=== PATIENT | female | born 1935 | race Caucasian/White ===

== ENCOUNTER 2018-07-01 04:50 | Inpatient (IN) ==
[2018-07-01 05:32] LABS: BASO# 0.01 X1000 (0.0-0.2); BASO% 0.1 % (0.0-0.8); EOS# 0.19 X1000 (0.0-0.7); EOS% 2.1 % (0.0-10.0); HEMOGLOBIN 11.8 g/dL (12.0-16.0); IMM GRAN# 0.01 X1000 (0.0-0.04); IMM GRAN% 0.1 % (0.0-0.5); LYMPH# 1.95 X1000 (1.2-3.4); MCH 31.2 PG (27-31); MCHC 31.1 g/dL (33-37); MCV 100.5 FL (81-99); MPV 9.6 FL (7.4-10.4); NEUT% 66.7 % (42.2-75.2); PLT 155 X1000 (130-400); RBC 3.78 XMIL (4.2-5.4); RDW 19.7 % (11.5-14.5); WBC 8.86 X1000 (4.8-10.8)
[2018-07-01 05:49] LABS: ALBUMIN 3.3 g/dL (3.5-5.0); CALCIUM 8.9 mg/dL (8.8-10.2); CREATININE 1.3 mg/dL (0.5-0.9); POTASSIUM 4.3 mmol/L (3.5-5.1); TOTAL BILIRUBIN 0.3 mg/dL (0.20-1.00); TOTAL PROTEIN 6.5 g/dL (6.3-8.3)
[2018-07-01] MEDS ORDERED: NS 1,000 ML IV SCH ×2 (06:15→13:45)
--- NOTE | 2018-07-01 06:52 | PROVIDER DOCUMENTATION ---
HPI-Abdominal Pain/GI Problem - General Chief Complaint: Diarrhea Stated Complaint: DIARRHEA Time Seen by Provider: 07/01/18 05:51 Source: patient, family Allergies/Adverse Reactions: Patient Allergies Allergy/AdvReac Type Severity Reaction Status Date / Time Penicillins Allergy Severe RASH Verified 07/01/18 05:03 cephalexin monohydrate * Allergy Unknown Unknown Verified 07/01/18 05:03 [From Keflex] codeine [Codeine] Allergy Unknown Unknown Verified 07/01/18 05:03 Sulfa (Sulfonamide Allergy Unknown Unknown Verified 07/01/18 05:03 Antibiotics) ciprofloxacin [From Cipro] Allergy RASH Verified 07/01/18 05:03 ciprofloxacin HCl * Allergy RASH Verified 07/01/18 05:03 [From Cipro] Home Medications: Home Medication List Medication Instructions Recorded Confirmed Last Taken Type ATORVAstatin [Lipitor] 20 mg PO QHS 11/02/12 05/31/18 09/30/17 20:00 History 40 mg Aspirin [Aspirin EC] 81 mg PO QAM 11/02/12 05/31/18 10/01/17 08:00 History 81 mg Multivit with Iron-Minerals 1 each PO QAM 11/02/12 05/31/18 10/01/17 08:00 History [Complete Senior] 1 tab Omeprazole 20 mg PO DAILY@0600 11/02/12 05/31/18 10/01/17 07:00 History 20 mg Pentoxifylline E.r. [Trental] 400 mg PO BID 11/02/12 05/31/18 10/01/17 08:00 History 400 mg Cyanocobalamin [Vitamin B-12] 500 microgm PO DAILY 10/01/17 05/31/18 10/01/17 08 :00 History 500 mcg Fish Oil/Dha/Epa [Fish Oil 1,200 1 cap PO DAILY 10/01/17 05/31/18 10/01/17 08: 00 History mg Fish Oil] 1 cap Gabapentin [Neurontin] 300 mg PO 4XDAY #60 cap 10/06/17 02/28/18 Unknown Rx Cyclobenzaprine HCl [Flexeril] 2.5 mg PO TID 12/09/17 05/31/18 Unknown History Insulin Aspart [Novolog Flexpen] See Protocol SQ AC + HS 02/28/18 05/31/18 Unknown History Insulin Detemir [Levemir] 15 unit SUBQ 0800 02/28/18 05/31/18 Unknown History Tramadol [Ultram] 50 mg PO 4XDAY 02/28/18 05/31/18 Unknown History - History of Present Illness-ABD Nature of Presenting Problems: 83 yo WF became ill about 30 hours ago with watery diarrhea and incontinence. She has not had any fever, chills, hematachzia or significant cramping. No foreign travel and no one else in the family is ill. She is known to have diverticulosis. Review of Systems - Adult - REVIEW OF SYSTEMS - ADULT Constitutional: reports: kristy. denies: chills, fever Eyes: reports: no symptoms reported Ears, Nose, Mouth & Throat: reports: no symptoms reported Cardiovascular: reports: no symptoms reported Respiratory: reports: no symptoms reported Gastrointestinal: reports: see HPI, diarrhea. denies: rectal bleeding, vomiting Genitourinary: reports: no symptoms reported Musculoskeletal: reports: no symptoms reported Integumentary: reports: no symptoms reported Neurological: reports: no symptoms reported Psychiatric: reports: no symptoms reported Endocrine: reports: no symptoms reported Hematologic/Lymphatic: reports: no symptoms reported Past History - Adult - PAST MEDICAL HISTORY-ADULT Review of Records: reports: Old Records Reviewed, Nursing Assessment Review, Medications Reviewed Major Childhood Illnesses: reports: denies history Cardiovascular: reports: HTN, hyperlipidemia Gastrointestinal: reports: GERD Genitourinary: reports: kidney disease Neurological: reports: dementia, TIA Endocrine/Immune: reports: Diabetes Other Conditions: reports: denies history - PRIOR SURGERIES/PROCEDURES Surgical/Procedure History: reports: other (cataract surgery, carotid and femoral artery surgery(stent placement)) - IMMUNIZATION STATUS Childhood Immunizations: See Nurse Assessment Flu Vaccine: See Nurse Assessment - FAMILY HISTORY Family History: reviewed, not pertinent Physical Exam-General - PHYSICAL EXAM-ADULT Initial Vital Signs Reviewed: Yes - CONSTITUTIONAL General Appearance: alert, mild distress, thin - EYES Eyes: PERRL/EOMI, pink conjunctivae - HEAD, EARS, NOSE, MOUTH & THROAT HENMT: normocephalic/atraumatic, normal ENT inspection, other (edetulous). negative: moist mucous membranes - NECK Neck: non-tender, full range of motion - RESPIRATORY Respiratory: chest non-tender, lungs clear, normal breath sounds - CARDIOVASCULAR Cardiovascular: normal peripheral pulses, regular rate, rhythm, no edema - GASTROINTESTINAL (ABDOMEN) Abdominal Exam: normal bowel sounds, non tender, soft. negative: guarding, tenderness - MUSCULOSKELETAL Back Exam: normal inspection Extremity: normal range of motion - SKIN Integumentary: normal color, normal turgor, warm/dry - NEUROLOGIC Neurologic: grossly normal Progress - PLAN OF CARE/RESULTS Progress/Plan/Lab Results: Vital Signs - 8 hr 07/01/18 04:59 07/01/18 05:25 07/01/18 05:46 Temperature 97.8 F Pulse Rate 112 H 83 83 Respiratory Rate 20 16 18 Blood Pressure 191/69 150/81 169/80 O2 Sat by Pulse Oximetry 83 L 100 Laboratory Results - last 24 hr 07/01/18 07/01/18 05:24 05:24 WBC 8.86 RBC 3.78 L Hgb 11.8 L Hct 38.0 MCV 100.5 H MCH 31.2 H MCHC 31.1 L RDW Std Deviation 19.7 H Plt Count 155 MPV 9.6 Immature Gran % (Auto) 0.1 Neut % (Auto) 66.7 Lymph % (Auto) 22.0 [place] % (Auto) 9.0 Eos % (Auto) 2.1 Baso % (Auto) 0.1 Immature Gran # (Auto) 0.01 Neut # (Auto) 5.90 Lymph # (Auto) 1.95 [place] # (Auto) 0.80 H Eos # (Auto) 0.19 Baso # (Auto) 0.01 Sodium 141 Potassium 4.3 Chloride 107 Carbon Dioxide 21 L Anion Gap 13 BUN 32 H Creatinine 1.3 H Estimated GFR/1.73 m2 39 BUN/Creatinine Ratio 25 Glucose 99 Calculated Osmolality 288 Calcium 8.9 Total Bilirubin 0.30 AST 40 H ALT 22 Alkaline Phosphatase 148 H Total Protein 6.5 Albumin 3.3 L Globulin 3.0 Albumin/Globulin Ratio 1.0 Orders Category Date Time Status Cardiac Monitoring DIRECTED Care 07/01/18 05:04 Active Oxygen Therapy- ED Nursing DIRECTED Care 07/01/18 05:04 Active Saline Loc NOW Care 07/01/18 05:04 Active Straight Catheterization ORDERED Care 07/01/18 06:[address] Stat Lab 07/01/18 06:11 Uncollected CBC WITH DIFF [HEME] Stat Lab 07/01/18 05:24 Completed COMPREHENSIVE METABOLIC PANEL [CHEM] Stat Lab 07/01/18 05:24 Completed OCCULT BLOOD SCREEN STOOL PL Stat Lab 07/01/18 06:11 Uncollected STOOL CULTURE [RM] Stat Lab 07/01/18 06:12 Uncollected UA [URINALYSIS] [URINALYSIS] Stat Lab 07/01/18 06:09 Uncollected 0.9% Sodium Chloride Inj [Ns] 1,000 ml Med 07/01/18 06:15 Active IV 500 mls/hr Result Diagrams: 07/01/18 05:24 07/01/18 05:24 - REASSESSMENT Reassessment #1 Time Reassessed: 07:00 Status: improving (She has had almost one liter of saline but still appears quite volume depleted. I did discuss end of life issues with patient and her daughter and both agree that CPR would be inadvisable.) - CONSULTS/PCP/HOSPITALIST Notification #1 *Consult/PCP/Hospitalist*: Dr Thompson Time Discussed: 06:30 Departure - Departure Date of Disposition Decision: 07/01/18 Time of Disposition Decision: 07:14 DIAGNOSIS: Diarrhea Qualifiers: Diarrhea type: unspecified type Qualified Code(s): R19.7 - Diarrhea, unspecified Disposition: ADMITTED INPATIENT 09 Certified Medical Emergency: Emergent Condition: Poor Referrals and Follow-Ups: Tanmay Thompson MD [Primary Care Provider] - - Critical Care Note This patient required my direct & personal management of CC.: No Attestation - Physician/ [facility] Attestation The physician spent face to face time with patient:: Yes Advanced Practice Provider documentation review:: Supervising physician onsite and consulted in the evaluation and care of this patient. The physician did have a face to face encounter with the patient.
[2018-07-01] MEDS ORDERED: NS 1,000 ML IV ONE (07:17)
[2018-07-01 08:10] LABS: OCCULT BLOOD 1 NEGATIVE (NEGATIVE)
[2018-07-01 10:18] LABS: URINE SOURCE CATH
[2018-07-01 10:49] LABS: BILIRUBIN URINE NEGATIVE (NEGATIVE); BLOOD URINE NEGATIVE (NEGATIVE); CLARITY CLEAR (CLEAR); COLOR YELLOW; GLUCOSE URINE NEGATIVE (NEGATIVE); KETONE URINE NEGATIVE (NEGATIVE); LEUKOCYTES URINE NEGATIVE (NEGATIVE); NITRITE URINE NEGATIVE (NEGATIVE); PROTEIN URINE 2+(100 mg/dL) mg/dL (NEGATIVE); UROBILINOGEN URINE NORMAL
[2018-07-01 10:50] LABS: URINE BACTERIA 1+ /HFP; URINE CAST GRANULAR PRESENT /LPF; URINE EPITHELIAL CELLS <10 /HPF (<10)
[2018-07-01] MEDS ORDERED: ZOFRAN IV PRN (13:40)
--- NOTE | 2018-07-01 15:00 | HISTORY AND PHYSICAL ---
CHIEF COMPLAINT: Diarrhea x3 days. HISTORY OF PRESENT ILLNESS: This is an 83-year-old female with a history of dementia, diabetes mellitus, hypertension, and peripheral vascular disease. She presents to the emergency room with her family members who state that she has had diarrhea for the last 3 days and also running low blood sugars. There have been no complaints of nausea, vomiting, or abdominal pain. No black or bloody vomitus or stools. 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 PAST SURGICAL HISTORY: Right carotid endarterectomy, bilateral aortic femoral bypass. SOCIAL HISTORY: She lives with her daughter. She denies alcohol, tobacco, or illicit drug use. ALLERGIES: Penicillin, Keflex, codeine, sulfa, and Cipro. HOME MEDICATIONS: A list will be obtained by the nursing staff and once verified we will review and restart as is appropriate. REVIEW OF SYSTEMS: Discussed with the patient with pertinent positives stated in the HPI. They deny any syncope, dizziness, chest pain, palpitations, any fever, chills, night sweats, recent weight loss or weight gain, nausea, vomiting, abdominal pain, any constipation, black or bloody vomitus or stools, any hematuria, dysuria, frequency, urgency, or shortness of breath. PHYSICAL EXAMINATION: GENERAL: This is an 83-year-old female who is sitting up in the bed, in no distress. VITAL SIGNS: Blood pressure is 165/77, with heart rate of 85, respirations 18, temperature is 98 degrees oral, with O2 saturation 98 to 100% on 2 L nasal cannula. EYES: Pupils are equal, round, react to light. EOMs are intact. Sclerae are anicteric. HENT: Head is normocephalic, atraumatic. Mucous membranes are moist. NECK: Supple with trachea midline. CARDIOVASCULAR: Regular rate and rhythm. S1 and S2 appreciated. She does have some bilateral lower extremity edema which is chronic, with peripheral pulses palpable x4. PULMONARY: Breath sounds are clear with no increased work of breathing noted. Chest rises and falls symmetrically with respiration. Chest wall is nontender to palpation. GASTROINTESTINAL: Abdomen is soft, nontender, nondistended. Bowel sounds in all 4 quadrants. SKIN: Warm and dry. NEUROLOGIC: She is alert and oriented x3. LABS: WBC is 8.8, with hemoglobin 11.8, hematocrit 38, and platelets of 155,000. Sodium is 141, potassium 4.3, BUN 32, creatinine 1.3, with a glucose of 99. Urinalysis is essentially negative. Stool for occult blood is negative. C. difficile toxin is negative. ASSESSMENT AND PLAN: 1. Diarrhea. She has not complained of diarrhea nor had any incontinent stools since admission. We will continue to monitor. We will continue with gentle hydration. 2. Chronic kidney disease stage 3B. Will renal dose any medications and trend her labs. 3. Diabetes mellitus. We will check pattern blood glucose with sliding scale insulin and place her on a diabetic diet. 4. Dementia. Aware. Will continue home medications. 5. Hypertension. We will trend vital signs and continue home medications. 6. History of cerebrovascular accident. Aware. 7. Peripheral vascular disease. We will continue her Trental. We will advance her diet and once she is eating appropriately, then we can restart some of her home insulin medications. Further treatments pending hospital course. Dictated by MICHELLE Jesus for Tanmay Thompson MD This chart was documented by, MICHELLE Jesus and accurately reflects the services performed, treatment plan and medical decisions as attested by the providers signature Tanmay Thompson MD. cc: MICHELLE Jesus MD
[2018-07-01] MEDS: PRINIVIL PO SCH (15:43)
[2018-07-01] MEDS: MORPHINE IV PRN ×2 (15:44→20:20)
[2018-07-01] MEDS: SODIUM CHLORIDE 0.9% INJ SCH (15:44)
[2018-07-01] MEDS: PROTONIX IV SCH (15:44)
[2018-07-01] MEDS: NS 1,000 ML IV SCH (15:44)
[2018-07-01] MEDS ORDERED: HUMALOG DOSE (PARKWAY) SUBQ SCH (16:00)
[2018-07-01] MEDS: HUMALOG DOSE (PARKWAY) SUBQ SCH ×2 (18:28→20:08)
[2018-07-01] MEDS: NEURONTIN PO SCH ×2 (18:40→20:08)
[2018-07-01] MEDS: TRENTAL PO SCH (20:09)
[2018-07-01] MEDS ORDERED: LIPITOR PO SCH (21:00)
--- NOTE | 2018-07-01 21:04 | HISTORY AND PHYSICAL ---
ADDENDUM TO HISTORY AND PHYSICAL: I saw the patient [id number] and fully agree with the assessment and plan of Nurse Practitioner Marta Kirby. This is an 83-year-old female who is admitted after having significant diarrhea. She also has developed slight dehydration. We will provide her IV fluids and general supportive care. She will be given a clear liquid diet and we are going to repeat labs tomorrow morning. Stool culture has also been requested. Further recommendations will be given as per hospital course. Please refer to the chart for further documentation. cc: Tanmay Thompson MD
[2018-07-02] MEDS: NS 1,000 ML IV SCH ×2 (01:25→11:54)
[2018-07-02] MEDS: MORPHINE IV PRN ×3 (01:28→11:54)
[2018-07-02] MEDS: HUMALOG DOSE (PARKWAY) SUBQ SCH ×2 (06:07→11:56)
[2018-07-02 06:53] LABS: BASO# 0.01 X1000 (0.0-0.2); BASO% 0.2 % (0.0-0.8); EOS# 0.14 X1000 (0.0-0.7); EOS% 2.5 % (0.0-10.0); HEMATOCRIT 35.2 % (37.0-47.0); HEMOGLOBIN 10.8 g/dL (12.0-16.0); IMM GRAN# 0.01 X1000 (0.0-0.04); IMM GRAN% 0.2 % (0.0-0.5); LYMPH# 2.24 X1000 (1.2-3.4); LYMPH% 39.8 % (20.5-51.1); MCH 30.9 PG (27-31); MCHC 30.7 g/dL (33-37); MCV 100.9 FL (81-99); MONO# 0.55 X1000 (0.11-0.59); MONO% 9.8 % (1.7-9.3); MPV 10.9 FL (7.4-10.4); NEUT# 2.68 X1000 (1.4-6.5); NEUT% 47.5 % (42.2-75.2); PLT 155 X1000 (130-400); RBC 3.49 XMIL (4.2-5.4); RDW 19.8 % (11.5-14.5); WBC 5.63 X1000 (4.8-10.8)
[2018-07-02 07:33] LABS: ALBUMIN 2.8 g/dL (3.5-5.0); CALCIUM 7.9 mg/dL (8.8-10.2); POTASSIUM 3.8 mmol/L (3.5-5.1); TOTAL BILIRUBIN 0.3 mg/dL (0.20-1.00); TOTAL PROTEIN 5.3 g/dL (6.3-8.3)
[2018-07-02] MEDS: TRENTAL PO SCH (09:34)
[2018-07-02] MEDS: NEURONTIN PO SCH ×2 (09:34→13:13)
[2018-07-02] MEDS: PRINIVIL PO SCH (09:34)
[2018-07-02] MEDS: SODIUM CHLORIDE 0.9% INJ SCH (13:13)
[2018-07-02] MEDS: PROTONIX IV SCH (13:13)
--- NOTE | 2018-07-02 15:27 | PROGRESS NOTE ---
DATE: 07/02/2018 SUBJECTIVE: Patient has no focal complaints. She says her bowel movement was normal today. OBJECTIVE: Blood pressure is 166/60, heart rate of 82, respiratory rate is 16, temperature 98.1 degrees, 99% on room air.Cardiovascular: Regular rate and rhythm. Pulmonary: Bilateral breath sounds. Clear to auscultation. GI: Soft, nontender, nondistended. Bowel sounds were positive. LABS: White count 5, hemoglobin and hematocrit 10 and 35, platelets 155,000. Patient is doing better. PROBLEMS: 1. Diarrhea that seems to have stopped, according the history and physical actually stopped yesterday so I am not sure that. 2. Chronic renal failure stage 3B she is stable. 3. Diabetes appears to be stable. I am going to advance her diet, take out her Page, we need to see if she can ambulate and then we can decide a little bit better about our terminal manager treatment so in any case plan is to go home. She is actually Dr. Thompson's patient, well go home and resume home health and we will see how she does. I anticipate discharge tomorrow and will see how things go now she is a little bit anemic but she has B12 deficiency so that is to be expected. I will go and just check her folate levels and see how she does. cc: Carson Jones MD
[2018-07-02 15:41] VITALS: BP 179/68
[2018-07-03] MEDS ORDERED: PRILOSEC PO SCH (07:00)
--- NOTE | 2018-07-03 09:03 | DISCHARGE SUMMARY ---
ADMISSION DATE: 07/01/2018 DISCHARGE DATE: 07/02/2018 PRIMARY CARE PHYSICIAN: Tanmay Thompson MD ADMISSION DIAGNOSES: 1. Diarrhea. 2. Chronic kidney disease stage 3B. 3. Diabetes. 4. Dementia. 5. Hypertension. 6. History of cerebrovascular accident. 7. Peripheral vascular disease. DISCHARGE DIAGNOSES: 1. Diarrhea. Patient has not had any diarrhea or incontinent stools since admission. 2. Chronic kidney disease stage 3B. 3. Diabetes. 4. Dementia. 5. Hypertension. 6. History of cerebrovascular accident. 7. Peripheral vascular disease. SUMMARY OF FINDINGS: This is an 83-year-old female who presented to the emergency room with family stating that she had had diarrhea for the last 3 days and running low blood sugars. No nausea, vomiting, or abdominal pain. No black or bloody vomitus or stools were noted. She did not have any diarrhea or incontinence stools on the day of admission. On the day of discharge, she did have 1 soft brown stool, but no diarrhea. Her stool for occult blood was negative. Her stool for Clostridium difficile toxin was negative. It was felt that she could safely be discharged home with home health services. DISCHARGE MEDICATIONS: Aspirin 81 mg p.o. q.a.m., atorvastatin 20 mg p.o. at bedtime, vitamin B12 500 mcg p.o. daily, Flexeril 2.5 mg p.o. t.i.d., fish oil 1200 mg 1 p.o. daily, gabapentin 300 mg p.o. 4 times daily, NovoLog as directed, Levemir 15 units subcutaneously daily, lisinopril 20 mg p.o. daily, multivitamin with iron p.o. q.a.m., omeprazole 20 mg p.o. daily. Trental 400 mg p.o. b.i.d., and tramadol 50 mg p.o. 4 times daily. FOLLOWUP: She will need to follow up with her primary care physician in 1 to 2 weeks and call his office for an appointment. Again, she will have home health services also. Thirty-five minute discharge summary. Dictated by MICHELLE Modi for Carson Jones MD cc: MICHELLE Modi MD Adnan A. Seljuki, MD
== END 2018-07-02 17:14 | disposition home health service (06) | DRG 392 ==
LOC: P.ED 04:50 → P.MEDSURG 10:34
PROVIDERS: ADMIT Internal Medicine; ATTEND Internal Medicine
CPT/HCPCS: 51702; 80053; 81001; 82270; 82948; 85025; 87045; 87046; 87324; 94761; 96360; 96361; 99285; A9270; C9113; J2270; J2405; J7030; S0164; XXXXX

== ENCOUNTER 2019-04-09 15:07 | Observation (INO) ==
--- NOTE | 2019-04-09 15:47 | PROVIDER DOCUMENTATION ---
HPI-General Adult - General Chief Complaint: Fall Stated Complaint: FELL - CUT ABOVE LEFT EYE Time Seen by Provider: 04/09/19 15:16 Source: patient, family Allergies/Adverse Reactions: Patient Allergies Allergy/AdvReac Type Severity Reaction Status Date / Time Penicillins Allergy Severe RASH Verified 07/01/18 05:03 cephalexin monohydrate * Allergy Unknown Unknown Verified 07/01/18 05:03 [From Keflex] codeine [Codeine] Allergy Unknown Unknown Verified 07/01/18 05:03 Sulfa (Sulfonamide Allergy Unknown Unknown Verified 07/01/18 05:03 Antibiotics) ciprofloxacin [From Cipro] Allergy RASH Verified 07/01/18 05:03 ciprofloxacin HCl * Allergy RASH Verified 07/01/18 05:03 [From Cipro] Home Medications: Home Medication List Medication Instructions Recorded Confirmed Last Taken Type ATORVAstatin [Lipitor] 20 mg PO QHS 11/02/12 07/01/18 09/30/17 20:00 History 40 mg Aspirin [Aspirin EC] 81 mg PO QAM 11/02/12 07/01/18 10/01/17 08:00 History 81 mg Multivit with Iron,Minerals 1 each PO QAM 11/02/12 07/01/18 10/01/17 08:00 History [Complete Senior] 1 tab Omeprazole 20 mg PO DAILY@0600 11/02/12 07/01/18 10/01/17 07:00 History 20 mg Pentoxifylline E.r. [Trental] 400 mg PO BID 11/02/12 07/01/18 10/01/17 08:00 History 400 mg Cyanocobalamin [Vitamin B-12] 500 microgm PO DAILY 10/01/17 07/01/18 10/01/17 08:00 History 500 mcg Fish Oil/Dha/Epa [Fish Oil 1,200 1 cap PO DAILY 10/01/17 07/01/18 10/01/17 08:00 History mg Fish Oil] 1 cap Gabapentin [Neurontin] 300 mg PO 4XDAY #60 cap 10/06/17 07/01/18 Unknown Rx Cyclobenzaprine HCl [Flexeril] 2.5 mg PO TID 12/09/17 07/01/18 Unknown History Tramadol [Ultram] 50 mg PO 4XDAY 02/28/18 07/01/18 Unknown History Cyanocobalamin [Vitamin B-12] 500 microgm PO DAILY 07/01/18 07/01/18 Unknown History Insulin Aspart [Novolog] 100 unit SQ DIRECTED 07/01/18 07/01/18 Unknown History Insulin Detemir [Levemir] 15 unit SQ DAILY 07/01/18 07/01/18 Unknown History Lisinopril 20 mg PO DAILY 07/01/18 07/01/18 Unknown History - History of Present Illness -Gen Adult Nature of Presenting Problems: [id number] presents to the hospital with daughter c/o falling x 2 today. Daughter states that her mother is just weak. She reports that she has progressively gotten worse over the last couple of days. She is very unsteady on her feet and just drops to the ground, which happened early this morning upon waking. Early (just prior to arrival) the daughter went tot he store. She told her mother not to get up from her chair until she got back. When she came home she found her mother in the bathroom on top of her walker. She was bleeding from her left eyebrow with her head laying against the toilet. The patient was unable to tell her daughter how long she'd been in the bathroom but was complaining her left hip hurt and her head hurt. She does not report LOC. Daughter reports no recent illness or fever. patient is awake, alert and oriented to person and place. Location of Pain/Injury: reports: head, lower extremity (left hip) Quality of Pain: reports: aching Severity: reports: moderate Onset/Duration: reports: just prior to arrival Associated Symptoms: reports: headaches, weakness, trouble walking, other (left hip pain) Similar Symptoms Previously?: No Recently seen or treated by another doctor?: No Review of Systems - Adult - REVIEW OF SYSTEMS - ADULT Constitutional: reports: see HPI. denies: chills, fever Eyes: reports: no symptoms reported Ears, Nose, Mouth & Throat: reports: no symptoms reported Cardiovascular: reports: no symptoms reported Respiratory: reports: no symptoms reported. denies: cough, shortness of breath, wheezing Gastrointestinal: reports: no symptoms reported Genitourinary: reports: no symptoms reported Musculoskeletal: reports: no symptoms reported, bone pain (left hip) Integumentary: reports: no symptoms reported Neurological: reports: no symptoms reported. denies: dizziness/vertigo, headache/migraines Psychiatric: reports: no symptoms reported Endocrine: reports: no symptoms reported Hematologic/Lymphatic: reports: no symptoms reported Allergic/Immunologic: reports: no symptoms reported All Other Systems: Reviewed and Negative Past History - Adult - PAST MEDICAL HISTORY-ADULT Review of Records: reports: Old Records Reviewed, Nursing Assessment Review, Medications Reviewed, Social history reviewed & non-contributory. Major Childhood Illnesses: reports: denies history Cardiovascular: reports: cardiac disease, CHF, HTN, hyperlipidemia Respiratory: reports: denies history Gastrointestinal: reports: GERD Obstetrical/Gynecological: reports: denies history Genitourinary: reports: kidney disease Musculoskeletal: reports: denies history Neurological: reports: dementia, TIA Endocrine/Immune: reports: Diabetes Other Conditions: reports: denies history - PRIOR SURGERIES/PROCEDURES Surgical/Procedure History: reports: other (cataract surgery, carotid and femoral artery surgery(stent placement)) - IMMUNIZATION STATUS Childhood Immunizations: See Nurse Assessment Flu Vaccine: See Nurse Assessment - FAMILY HISTORY Family History: reviewed, not pertinent - SOCIAL HISTORY Smoking: denies Substance Use: alcohol Living Situation: family Physical Exam-General - PHYSICAL EXAM-ADULT Initial Vital Signs Reviewed: Yes - CONSTITUTIONAL General Appearance: alert, mild distress - EYES Eyes: PERRL/EOMI, pink conjunctivae - HEAD, EARS, NOSE, MOUTH & THROAT HENMT: moist mucous membranes, normal ENT inspection, TMs normal - NECK Neck: non-tender, full range of motion, supple - RESPIRATORY Respiratory: lungs clear, normal breath sounds - CARDIOVASCULAR Cardiovascular: regular rate, rhythm, no edema, no gallop - GASTROINTESTINAL (ABDOMEN) Abdominal Exam: non tender, soft - MUSCULOSKELETAL Extremity: normal range of motion. negative: deformity, inflammation Peripheral Pulses: radial (R): 2+, radial (L): 2+, dorsalis-pedis (R): 2+, dorsalis-pedis (L): 2+ - SKIN Integumentary: laceration(s) (left brow 2.2cm), other (contusion to left hip with eccymosis) - NEUROLOGIC Neurologic: grossly normal - PSYCHIATRIC Psych/Mental Status: normal mood/affect Progress - PLAN OF CARE/RESULTS Progress/Plan/Lab Results: Vital Signs - 8 hr 04/09/19 15:13 Temperature 98 F Pulse Rate 84 Respiratory Rate 18 Blood Pressure 171/67 O2 Sat by Pulse Oximetry 96 Orders Category Date Time Status Nursing- Obtain EKG ONCE Care 04/09/19 15:36 Active CHEST-2 VIEWS [RAD] Stat Exams 04/09/19 15:[address] HEAD W/O CONTRAST [CT] Stat Exams 04/09/19 15:33 Ordered XRAY PELVIS W/HIP 2-3VW LT [RAD] Stat Exams 04/09/19 15:35 Ordered CBC WITH ELECTRONIC DIFF [HEME] Stat Lab 04/09/19 15:36 Uncollected COMPREHENSIVE METABOLIC PANEL [CHEM] Stat Lab 04/09/19 15:36 Uncollected Cardiac Profile [CK PROFILE] [SP CHEM] Stat Lab 04/09/19 15:36 Ordered MAGNESIUM [CHEM] Stat Lab 04/09/19 15:36 Uncollected PHOSPHORUS [CHEM] Stat Lab 04/09/19 15:36 Ordered TROPONIN T Stat Lab 04/09/19 15:36 Ordered UA NIMS W/REFLEX CULT PL [URINALYSIS] Stat Lab 04/09/19 15:36 Uncollected EKG [EKG] Stat Ther 04/09/19 15:36 Ordered daughter verbalizes an understanding of POC and agrees with treatment rendered here today. Result Diagrams: 04/09/19 16:17 04/09/19 16:17 - REASSESSMENT Reassessment #1 Time Reassessed: 17:08 Status: other (Pt signed out to me by ERON Tinoco. She reports 2 falls while attempting to stand today. Sustained head injury after second fall. Has had some generalized weakness that is progressively worsened to the point of being unable to ambulate today. Daughter with pt. Pt is neurologically intact. Pt and daughter in agreement with decision to admit for further evaluation and testing. Admitting HPS paged.) - XRAY 1 XRAY Study: Chest ([facility] - [address], [address], [place] [address] [facility] - [address] [place] [address] Department of Imaging Patient: MONTEZ ROSALESADM Date: 04/09/19MR#: [id number] : 1935DM [id number] Age/Sex: 84/FRoom/Bed: Loc: P.ED Ordering Physician: Hilary Luque Family Physician: Tanmay Thompson MD Reason for Procedure: weakness Signed CHEST-1 VIEW - 04/09/2019 INDICATION: weakness COMPARISON: 05/31/2018 FINDINGS: Stable peripheral interstitial opacities bilaterally compatible with pulmonary fibrosis. No new infiltrates. Heart size is normal. Stable advanced vascular disease of the aortic arch. IMPRESSION: No change from prior. No acute process. Electronically signed by Bradley Weems 04/09/2019 4:53 PM 04/09/191652 Interpreting Physician: Bradley Weems MD Dictated Date/Time: 04/09/191651 cc: Hilary Luque; Tanmay Thompson MD) 2 XRAY: Left XRAY Study: Pelvis ([facility] - [address] [facility], [address] [id number] [place] [address] - [address] [place] [address] Department of Imaging Patient: MONTEZ ROSALES Date: 04/09/19#: [id number] : 1935DM Status: [facility]#: [id number] Age/Sex: 84/FRoom/Bed: Loc: P.ED Ordering Physician: Earnest Torres Family Physician: Tanmay Thompson MD Reason for Procedure: fall ____ Signed XRAY PELVIS W/HIP 2-3VW LT - 04/09/2019 INDICATION: fall TECHNIQUE: Three views COMPARISON: 02/28/2018 FINDINGS: No definite fracture. No dislocation. There is mild bilateral hip osteoarthritis. There is advanced degeneration of the spine, sacroiliac joints, and symphysis pubis. There is severe advanced vascular disease. IMPRESSION: No acute injury. Electronically signed by Bradley Weems 04/09/2019 5:00 PM 04/09/19 1700 Interpreting Physician: Bradley Weems MD Dictated Date/Time: 04/09/19 1658 cc: Earnest Torres; Tanmay Thompson MD), Hip - CT/MRI 1 CT Study: Head ([facility] - [address] [facility], [address], [place] [address] [facility] - [address] [place] [address] Department of Imaging Patient: MONTEZ ROSALESADM Date: 04/09/19#: [id number] : 1935DM [facility] [id number] Age/Sex: 84/FRoom/Bed: Loc: P.ED Ordering Physician: Earnest Torres Family Physician: Tanmay Thompson MD Reason for Procedure: fall ___ Signed EXAM: CT HEAD W/O CONTRAST HISTORY: fall TECHNIQUE: CT head without contrast COMPARISON: 02/28/2018 FINDINGS: No parenchymal hemorrhage. No epidural or subdural hematoma. No subarachnoid hemorrhage. No mass identified on this noncontrasted exam. Old left infarct similar to the prior study. Mild to moderate atrophy similar to the prior study. No hydrocephalus. No skull fracture. IMPRESSION: No hemorrhage. No injury. This exam was performed using automated exposure control, adjustment of mA or kV according to patient size, and/or use of iterative reconstruction technique. Electronically signed by Kobe Souza 04/09/2019 4:43 PM 04/09/19 1643 Interpreting Physician: Kobe Souza MD Dictated Date/Time: 04/09/19 1640 cc: Earnest Torres; Tanmay Thompson MD) - CONSULTS/PCP/HOSPITALIST Notification #1 *Consult/PCP/Hospitalist*: Dr. Jones Time Discussed: 17:11 Reason/Comments: admission- weakness, falls Consult Disposition: Admit (Dr. Jones states he will enter admit orders.) - CHANGE OF SHIFT REPORT (ED Provider) 1 Report Given and Care Transferred to:: Nikole neville Time of Transfer: 15:59 Items Pending: Labs, XRAY Results, CT/MRI Results Procedures - LACERATION/WOUND REPAIR/FB Face Wound Location: Other: left eyebrow Wound Length: 3 cm Wound's Depth, Shape: linear Wound Explored/Foreign Body: clean Irrigated with Saline?: Yes Prepped with: Hibiclens, Kit Utilized, Sterile Drapes Applied Anesthetic: 1%, Lidocaine w/ Epinephrine Volume of Anesthetic (ml's): 5 Wound Debrided: extensive (Wound flushed and debrided using 50 ml saline/hibiclens mixture) Wound Repaired with: Sutures Suture Size/Type: 5.0, Non-Absorbable, Nylon Number of Sutures: 4 Layer Closure?: No Post Procedure Neurovascular Exam: Intact Departure - Departure Date of Disposition Decision: 04/09/19 Time of Disposition Decision: 17:11 DIAGNOSIS: Weakness Disposition: ADMITTED INPATIENT 09 Certified Medical Emergency: Emergent Condition: Stable Referrals and Follow-Ups: Tanmay Thompson MD [Primary Care Provider] - - Critical Care Note This patient required my direct & personal management of CC.: No Attestation - Physician/ AURORA Attestation Patient care was provided by Advanced Practice Provider:: Yes Advanced Practice Provider:: Earnest Torres Advanced Practice Provider documentation review:: The Mid-level provider documentation, treatment plan and medical decision making was reviewed by the physician who agrees with all treatment and medical decision making by the MLP. The physician spent face to face time with patient:: No Advanced Practice Provider documentation review:: Supervising physician onsite and consulted in the evaluation and care of this patient. The physician did not have a face to face encounter with the patient.
[2019-04-09 16:22] LABS: BILIRUBIN URINE NEGATIVE (NEGATIVE); BLOOD URINE TRACE (NEGATIVE); CLARITY CLEAR (CLEAR); COLOR YELLOW; KETONE URINE NEGATIVE (NEGATIVE); LEUKOCYTES URINE NEGATIVE (NEGATIVE); NITRITE URINE NEGATIVE (NEGATIVE); SP GRAVITY URINE 1.005; UROBILINOGEN URINE NORMAL
[2019-04-09 16:26] LABS: URINE BACTERIA NEGATIVE /HFP; URINE EPITHELIAL CELLS <10 /HPF (<10); URINE RBC <10 /HPF (<10); URINE SOURCE CATH; URINE WBC <10 /HPF (<10)
[2019-04-09 16:34] LABS: BASO# 0.02 X1000 (0.0-0.2); BASO% 0.2 % (0.0-0.8); EOS# 0.07 X1000 (0.0-0.7); EOS% 0.7 % (0.0-10.0); HEMATOCRIT 30.9 % (37.0-47.0); HEMOGLOBIN 9.9 g/dL (12.0-16.0); IMM GRAN# 0.01 X1000 (0.0-0.04); IMM GRAN% 0.1 % (0.0-0.5); LYMPH# 2.99 X1000 (1.2-3.4); LYMPH% 31.9 % (20.5-51.1); MCH 32.1 PG (27-31); MCV 100.3 FL (81-99); MONO# 0.87 X1000 (0.11-0.59); MONO% 9.3 % (1.7-9.3); MPV 9.9 FL (7.4-10.4); NEUT% 57.8 % (42.2-75.2); PLT 175 X1000 (130-400); RBC 3.08 XMIL (4.2-5.4); RDW 14.6 % (11.5-14.5); WBC 9.36 X1000 (4.8-10.8)
--- NOTE | 2019-04-09 16:45 | Diag Imaging Result Doc PS360 ---
EXAM: CT HEAD W/O CONTRAST HISTORY: fall TECHNIQUE: CT head without contrast COMPARISON: 02/28/2018 FINDINGS: No parenchymal hemorrhage. No epidural or subdural hematoma. No subarachnoid hemorrhage. No mass identified on this noncontrasted exam. Old left infarct similar to the prior study. Mild to moderate atrophy similar to the prior study. No hydrocephalus. No skull fracture. IMPRESSION: No hemorrhage. No injury. This exam was performed using automated exposure control, adjustment of mA or kV according to patient size, and/or use of iterative reconstruction technique. Electronically signed by Kobe Souza 04/09/2019 4:43 PM
[2019-04-09 16:54] LABS: ALBUMIN 3.4 g/dL (3.5-5.0); CALCIUM 8.6 mg/dL (8.8-10.2); CREATININE 1.4 mg/dL (0.5-0.9); MAGNESIUM 1.4 mg/dL (1.5-2.7); POTASSIUM 4.8 mmol/L (3.5-5.1); TOTAL BILIRUBIN 0.3 mg/dL (0.20-1.00); TOTAL PROTEIN 4.9 g/dL (6.3-8.3)
[2019-04-09 16:55] LABS: PHOSPHORUS 3.5 mg/dL (2.7-4.5)
--- NOTE | 2019-04-09 16:55 | Diag Imaging Result Doc PS360 ---
CHEST-1 VIEW - 04/09/2019 INDICATION: weakness COMPARISON: 05/31/2018 FINDINGS: Stable peripheral interstitial opacities bilaterally compatible with pulmonary fibrosis. No new infiltrates. Heart size is normal. Stable advanced vascular disease of the aortic arch. IMPRESSION: No change from prior. No acute process. Electronically signed by Bradley Weems 04/09/2019 4:53 PM
[2019-04-09] MEDS ORDERED: XYLOCAINE 1%/EPI 1:100,000 INJ ONE (16:56)
--- NOTE | 2019-04-09 16:57 | ED EKG INTERP ---
This chart was entered by Safia Anthony Scribe, acting as scribe for Jo Sharp MD. EKG Interpretation - EKG Time of EKG reading by physician:: 16:23 EKG Read and Signed by:: Jo Sharp EKG Interpretation (*Must complete 3 of following elements*): Normal Rate: 72 Rhythm: normal sinus rhythm Spearman: normal QRS: normal GA Interval: normal ST Wave: normal Comments: normal ECG Attestation - Physician/ AURORA Attestation Patient care was provided by Advanced Practice Provider:: Yes Advanced Practice Provider:: Hilary Luque Advanced Practice Provider documentation review:: The Mid-level provider documentation, treatment plan and medical decision making was reviewed by the physician who agrees with all treatment and medical decision making by the MLP. The physician spent face to face time with patient:: No Advanced Practice Provider documentation review:: Supervising physician onsite and consulted in the evaluation and care of this patient. The physician did not have a face to face encounter with the patient. This chart was documented by the indicated scribe, (Safia Anthony Scribe) and accurately reflects the services I performed and decisions made by prAron Mai Huu, MD, as attested by the provider's signature.
--- NOTE | 2019-04-09 17:03 | Diag Imaging Result Doc PS360 ---
XRAY PELVIS W/HIP 2-3VW LT - 04/09/2019 INDICATION: fall TECHNIQUE: Three views COMPARISON: 02/28/2018 FINDINGS: No definite fracture. No dislocation. There is mild bilateral hip osteoarthritis. There is advanced degeneration of the spine, sacroiliac joints, and symphysis pubis. There is severe advanced vascular disease. IMPRESSION: No acute injury. Electronically signed by Bradley Weems 04/09/2019 5:00 PM
--- NOTE | 2019-04-09 17:07 | EKG Report ---
Test Performed on : 04/09/2019 4:23:34 PM Test Reason : weakness Blood Pressure : / mmHG Vent. Rate : 072 BPM Atrial Rate : 072 BPM P-R Int : 148 ms QRS Dur : 072 ms QT Int : 422 ms P-R-T Axes : 045 021 083 degrees QTc Int : 462 ms Normal sinus rhythm. Normal ECG When compared with ECG of 28-FEB-2018 14:35, premature atrial complexes. are no longer present Unconfirmed Result
[2019-04-09] MEDS ORDERED: SALINE LOCK IV FLUID XX ONE (19:27)
[2019-04-09] MEDS ORDERED: TYLENOL PO PRN ×2 (19:27→19:42)
[2019-04-09] MEDS ORDERED: ZOFRAN IV PRN ×2 (19:27→19:42)
[2019-04-09] MEDS ORDERED: NS 1,000 ML IV ONE (19:42)
[2019-04-09] MEDS ORDERED: MAGNESIUM SULFATE 4 GM/S.W.I. 4 GM/100 ML IVPB IV ONE (19:42)
--- NOTE | 2019-04-09 19:47 | HISTORY AND PHYSICAL ---
PRIMARY CARE PHYSICIAN: Dr. Thompson. CHIEF COMPLAINT: Of falls with a cut to her left eyebrow. HISTORY OF PRESENTING ILLNESS: This is an 84-year-old female who presents to [facility] with her daughter who states that she had multiple falls over the last several days. Had been very unsteady on her feet and would just "dropped to the ground" states that they went to the store to get some food for supper and she was sitting in her chair and when they got back home they found her in the bathroom on top of her walker and she was bleeding from her left eyebrow with her head leaning against the toilet. No loss of consciousness noted. Her workup was fairly benign. No fractures of any bones. She is getting sutures to her left eyebrow laceration at this time. Her magnesium level is noted to be low at 1.[address] her in the hospital for observation status. Daughter would like physical therapy to see the patient and have home health with PT at discharge. 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 PAST SURGICAL HISTORY: Of a right carotid end arterectomy, bilateral aortic femoral bypass. FAMILY HISTORY: Reviewed and noncontributory. SOCIAL HISTORY: She currently lives with her daughter. Denies any tobacco, alcohol or illicit drug use. ALLERGIES: Penicillin, Keflex, codeine, sulfa and Cipro. HOME MEDICATIONS: A current list will need to be obtained, reconciled, reviewed and restarted as appropriate. Will place an order for nursing to update and confirm home medications. LABORATORY DATA: Showed a white blood cell count of 9.36, hemoglobin 9.9, hematocrit 30.9, platelets 175,000. Sodium 129, potassium 4.8, chloride 97, CO2 24, BUN of 25, creatinine 1.4 which appears to be around her baseline, glucose 118, magnesium of 1.4. Urinalysis was negative. CT of the head showed no hemorrhage, no injury. Left hip pelvis x-ray showed no acute injury. Chest x-ray showed no acute process. EKG showed normal sinus rhythm at 72. REVIEW OF SYSTEMS: She denies any fever, chills, blurred vision, dizziness, chest pain, coughing, shortness of breath. She denied any chest pain, coughing, shortness of breath. She denied any abdominal pain, constipation, diarrhea, burning or hurting with urination. PHYSICAL EXAMINATION: On arrival she had a temperature of 98 degrees, pulse 84, respirations 18, blood pressure 171/67, saturating 96% on room air. GENERAL: This is a 84-year-old female who is lying in the bed. Daughter at bedside to give history of presenting illness, reviewed old medical records as well. Currently receiving stitches to her left eye laceration. She has bruising to her left periorbital area from her fall that is purple in color. Normal ENT inspection. Oropharynx and nares are clear. Eyes again has bruising to the periorbital area of the left eye with a laceration to the left eyebrow currently receiving stitches. NECK: Normal inspection, normal range of motion. LUNGS: Clear to auscultation bilaterally with equal lung expansion and chest wall movement. HEART: With regular rate and rhythm. No murmurs, rubs, or gallops. ABDOMEN: Soft, nontender, nondistended. Bowel sounds are present x4 quadrants. MUSCULOSKELETAL: She is moving all 4 extremities but has weakness noted. NEUROLOGICAL: The cranial nerves 2-12 appear grossly intact. ASSESSMENT: 1. Falls multiple. 2. Left eye laceration. 3. Hyponatremia. 4. Hypomagnesemia. PLAN: She will be admitted to the medical unit, placed on telemetry, healthy heart diet. Neuro checks q.4 for 24 hours, normal saline at 100 mL an hour, Zofran 4 mg IV q.4 hours. Will give her magnesium sulfate 4 g IV now and recheck a magnesium level in the a.m. We will consult physical therapy in the a.m. Recheck a CBC, BMP and a magnesium level in the a.m. and nursing to update and confirm home medications. Further orders after seen by attending. Dictated by MICHELLE Modi for Carson Jones MD cc: MD Carson Yan MD Pt seen and examined; has sustained a fall; and head laceration and apparently small wound on her elbow; will observe and get PT evaluation for strength evaluation; pt is not safe to go home as she is unable to ambulate; she may also have symptomatic hyponatremia, agree with other findings and plan as described above MTDD
--- NOTE | 2019-04-09 20:11 | Diag Imaging Result Doc PS360 ---
EXAM: ELBOW COMPLETE LEFT HISTORY: fall, hole in arm with ligaments hanging out TECHNIQUE: Three views COMPARISON: None. FINDINGS: No fracture. No dislocation. Soft tissue swelling about the olecranon. Prominent atherosclerosis. IMPRESSION: No acute bony injury. Electronically signed by Kobe Souza 04/09/2019 8:09 PM
[2019-04-09] MEDS: DOXYCYCLINE PO SCH (21:12)
[2019-04-10 06:11] LABS: BASO# 0.01 X1000 (0.0-0.2); BASO% 0.1 % (0.0-0.8); EOS# 0.12 X1000 (0.0-0.7); EOS% 1.4 % (0.0-10.0); HEMATOCRIT 38.4 % (37.0-47.0); HEMOGLOBIN 12.2 g/dL (12.0-16.0); IMM GRAN# 0.01 X1000 (0.0-0.04); IMM GRAN% 0.1 % (0.0-0.5); LYMPH# 2.46 X1000 (1.2-3.4); LYMPH% 29.1 % (20.5-51.1); MCH 31.6 PG (27-31); MCHC 31.8 g/dL (33-37); MCV 99.5 FL (81-99); MONO# 0.86 X1000 (0.11-0.59); MONO% 10.2 % (1.7-9.3); NEUT% 59.1 % (42.2-75.2); PLT 205 X1000 (130-400); RBC 3.86 XMIL (4.2-5.4); RDW 14.9 % (11.5-14.5); WBC 8.46 X1000 (4.8-10.8)
[2019-04-10 06:26] LABS: CALCIUM 9.1 mg/dL (8.8-10.2); CREATININE 1.2 mg/dL (0.5-0.9); MAGNESIUM 2.6 mg/dL (1.5-2.7); POTASSIUM 4.2 mmol/L (3.5-5.1)
[2019-04-10] MEDS: DOXYCYCLINE PO SCH (08:20)
[2019-04-10] MEDS ORDERED: HUMALOG (PARKWAY) SUBQ SCH (15:45)
[2019-04-10] MEDS: ULTRAM PO SCH ×2 (16:28→20:49)
[2019-04-10] MEDS: NEURONTIN PO SCH ×2 (16:29→20:49)
[2019-04-10] MEDS ORDERED: TYLENOL PO SCH (17:00)
--- NOTE | 2019-04-10 20:28 | PROGRESS NOTE ---
DATE: 04/10/2019 SUBJECTIVE: Patient has no major complaints. OBJECTIVE: Vital signs: Blood pressure 176/80, heart rate of 85, respiratory rate 22, temperature 97.8 degrees. Cardiovascular: Regular rate and rhythm. Pulmonary: Bilateral breath sounds. Clear to auscultation. GI: Soft, nontender, nondistended. Bowel sounds are positive. LABORATORY DATA: White count up to 133, creatinine down to 1.2. PROBLEMS: 1. Multiple falls. We are going to continue physical therapy and strength training. 2. Left eye laceration. Continue to monitor. 3. She also has an elbow perforation right through the subcutaneous tissue. We are going to try to keep it Steri stripped. I have discussed with Dr. Wilks. 4. Hyponatremia likely due to possibly malnutrition. Check urine electrolytes and follow. Continue IV fluids and monitor. DISPOSITION: We are continue strength training. Follow closely. cc: Carson Jones MD
[2019-04-10] MEDS: LIPITOR PO SCH (20:49)
[2019-04-10] MEDS: FLEXERIL PO SCH (20:50)
[2019-04-10] MEDS: TRENTAL PO SCH (20:50)
[2019-04-10] MEDS: HUMALOG (PARKWAY) SUBQ SCH (21:07)
[2019-04-11 05:59] LABS: BASO# 0.03 X1000 (0.0-0.2); BASO% 0.3 % (0.0-0.8); EOS# 0.21 X1000 (0.0-0.7); EOS% 2.2 % (0.0-10.0); HEMATOCRIT 35.4 % (37.0-47.0); HEMOGLOBIN 11.1 g/dL (12.0-16.0); IMM GRAN# 0.02 X1000 (0.0-0.04); IMM GRAN% 0.2 % (0.0-0.5); LYMPH# 4.07 X1000 (1.2-3.4); LYMPH% 43.6 % (20.5-51.1); MCH 32.2 PG (27-31); MCHC 31.4 g/dL (33-37); MCV 102.6 FL (81-99); MONO# 1.01 X1000 (0.11-0.59); MONO% 10.8 % (1.7-9.3); MPV 10.1 FL (7.4-10.4); NEUT% 42.9 % (42.2-75.2); PLT 188 X1000 (130-400); RBC 3.45 XMIL (4.2-5.4); RDW 15.3 % (11.5-14.5); WBC 9.34 X1000 (4.8-10.8)
[2019-04-11] MEDS: HUMALOG (PARKWAY) SUBQ SCH ×3 (06:07→16:12)
[2019-04-11] MEDS: PRILOSEC PO SCH (06:07)
[2019-04-11 06:19] LABS: CALCIUM 8.6 mg/dL (8.8-10.2); CREATININE 1.5 mg/dL (0.5-0.9); POTASSIUM 4.6 mmol/L (3.5-5.1)
[2019-04-11] MEDS ORDERED: FLU VACCINE IM ONE (08:00)
[2019-04-11] MEDS ORDERED: PRINIVIL PO SCH (09:00)
[2019-04-11] MEDS: TRENTAL PO SCH ×2 (09:17→21:13)
[2019-04-11] MEDS: ASPIRIN EC PO SCH (09:17)
[2019-04-11] MEDS: FLEXERIL PO SCH ×3 (09:18→21:12)
[2019-04-11] MEDS: LEVEMIR INSULIN *HA SUBQ SCH (09:18)
[2019-04-11] MEDS: VITAMIN B-12 PO SCH (09:18)
[2019-04-11] MEDS: ULTRAM PO SCH ×4 (09:18→21:12)
[2019-04-11] MEDS: ZYRTEC PO SCH (09:18)
[2019-04-11] MEDS: THERA M PLUS PO SCH (09:18)
[2019-04-11] MEDS: FISH OIL CONCENTRATE PO SCH (09:18)
[2019-04-11] MEDS: NEURONTIN PO SCH ×4 (09:18→21:13)
[2019-04-11] MEDS ORDERED: NS 1,000 ML IV ONE (10:57)
--- NOTE | 2019-04-11 17:34 | PROGRESS NOTE ---
DATE: 04/11/2019 SUBJECTIVE: The patient has no major complaints. OBJECTIVE: Blood pressure is 106/56, heart rate of 81, respiratory rate 20, temperature 97.7 degrees, 96% on room air.Cardiovascular: Regular rate and rhythm. Pulmonary: Bilateral breath sounds. Clear to auscultation. Gastrointestinal: Soft, nontender, nondistended. Bowel sounds are positive. LABORATORY DATA: White count of 9, hemoglobin and hematocrit 11 and 35, platelets of 188,000. Creatinine is up to 1.5. ASSESSMENT AND PLAN: 1. Multiple falls. We are going to continue physical therapy and strengthening. 2. Left eye laceration. Continue to monitor. 3. Elbow perforation. Continue treatment and follow. 4. Hyponatremia. We will continue to monitor urine electrolytes and follow. DISPOSITION: We are looking at most likely, so we will continue to follow. cc: Carson Jones MD
[2019-04-11] MEDS: LIPITOR PO SCH (21:12)
[2019-04-12] MEDS: HUMALOG (PARKWAY) SUBQ SCH ×3 (05:50→11:08)
[2019-04-12 07:09] LABS: BASO# 0.03 X1000 (0.0-0.2); BASO% 0.3 % (0.0-0.8); EOS# 0.23 X1000 (0.0-0.7); EOS% 2.5 % (0.0-10.0); HEMATOCRIT 31.4 % (37.0-47.0); HEMOGLOBIN 9.6 g/dL (12.0-16.0); IMM GRAN# 0.01 X1000 (0.0-0.04); IMM GRAN% 0.1 % (0.0-0.5); LYMPH# 3.42 X1000 (1.2-3.4); LYMPH% 37.1 % (20.5-51.1); MCH 32.1 PG (27-31); MCHC 30.6 g/dL (33-37); MONO# 1.03 X1000 (0.11-0.59); MONO% 11.2 % (1.7-9.3); NEUT% 48.8 % (42.2-75.2); PLT 159 X1000 (130-400); RBC 2.99 XMIL (4.2-5.4); RDW 15.1 % (11.5-14.5); WBC 9.22 X1000 (4.8-10.8)
[2019-04-12] MEDS: PRILOSEC PO SCH (07:14)
[2019-04-12 07:24] LABS: CALCIUM 8.1 mg/dL (8.8-10.2)
[2019-04-12 07:48] VITALS: BP 123/52
[2019-04-12] MEDS: ULTRAM PO SCH ×2 (08:59→12:00)
[2019-04-12] MEDS: FISH OIL CONCENTRATE PO SCH (09:00)
[2019-04-12] MEDS: NEURONTIN PO SCH ×2 (09:00→12:00)
[2019-04-12] MEDS: FLEXERIL PO SCH ×2 (09:00→15:40)
[2019-04-12] MEDS: VITAMIN B-12 PO SCH (09:00)
[2019-04-12] MEDS: LEVEMIR INSULIN *HA SUBQ SCH (09:00)
[2019-04-12] MEDS: ASPIRIN EC PO SCH (09:00)
[2019-04-12] MEDS: THERA M PLUS PO SCH (09:00)
[2019-04-12] MEDS: ZYRTEC PO SCH (09:00)
[2019-04-12] MEDS: TRENTAL PO SCH (09:00)
--- NOTE | 2019-04-12 14:04 | DISCHARGE SUMMARY ---
ADMISSION DATE: 04/09/2019 DISCHARGE DATE: 04/12/2019 PRIMARY CARE PHYSICIAN: Dr. Thompson. ADMISSION DIAGNOSES: 1. Multiple falls. 2. Left eyelid laceration. 3. Hyponatremia. 4. Hypomagnesemia. DISCHARGE DIAGNOSES: 1. Multiple falls. 2. Left eye laceration. 3. Elbow perforation. 4. Hyponatremia improved. SUMMARY OF FINDINGS: This is an 84-year-old female who presented to the emergency room after she had had multiple falls, and had been very unsteady on her feet. Her daughter had gone to the store and when she came back she found the patient in her bathroom on top of her walker, and was bleeding from her left eyebrow with her head leaning against the toilet. No loss of consciousness. She was also noted to have a left elbow perforation. X-ray showed no acute bony injury. We also did a head CT that showed no hemorrhage, no injury. Hip and pelvic x-ray of the left showed no acute injury. Her sodium was noted to be 129 on arrival, and creatinine was 1.4. Those have improved up to 132 today. She has been followed by physical therapy and occupational therapy. It is now felt she has been hydrated that she can safely be discharged to rehab today. DISCHARGE MEDICATIONS: 1. Aspirin 81 mg p.o. daily. 2. Atorvastatin 20 mg p.o. at bedtime. 3. 10 mg p.o. daily. 4. Cyanocobalamin 500 mcg p.o. daily. 5. Cyclobenzaprine 2.5 mg p.o. t.i.d. 6. Fish Oil 1200 mg p.o. daily. 7. Gabapentin 300 mg p.o. 4 times daily. 8. NovoLog 100 units subcutaneous as directed. 9. Multivitamin with iron 1 p.o. every morning. 10. Omeprazole 20 mg p.o. daily. 11. Trental 400mg p.o. b.i.d. 12. Tramadol 50 mg p.o. 4 times daily. 13. Tylenol 500 mg p.o. 4 times daily. 14. Lisinopril 20 mg p.o. daily. 15. Biofreeze topically p.r.n. DISCHARGE INSTRUCTIONS: She will need the stitches removed from her left eyebrow in 5 to 7 days per facility nurse. FOLLOW-UP: She will follow up with her primary care physician once she has completed her rehab stay. All discharge instructions have been reviewed and the patient verbalizes understanding. TIME SPENT: This is a 35 minute discharge. Dictated by MICHELLE Modi for Carson Jones MD cc: MICHELLE Modi MD Adnan A. Seljuki, MD [facility]
--- NOTE | 2019-04-12 19:03 | PROGRESS NOTE ---
DATE: 04/12/2019 SUBJECTIVE: The patient is stable today. No complaints. OBJECTIVE: Vitals: Stable. Mental status is stable. LABORATORY DATA: White count is 9. Potassium 3.2, creatinine is up to 2. DISCHARGE CONDITION: Stable. PLAN: The only recommendation, I think we are going to probably stop her YEMI and follow just because she has got intermitted renal insufficiency. cc: Carson Jones MD MTDD
== END 2019-04-12 15:45 ==
LOC: P.ED 15:07 → P.MEDSURG 17:55 → INTOOBSV 17:55
PROVIDERS: ATTEND Internal Medicine